=== PATIENT | female | born 1970 | race Caucasian/White ===

== ENCOUNTER → 2018-04-01 09:43 | Outpatient (CLI) | payer OTHER, SELFPAY ==
[2018-04-06 11:03] LABS: HPV Reflexed? NOT INDICATED
== END ==
PROVIDERS: Family Provider Student in an Organized Health Care Education/Training Program; Visit Provider Obstetrics & Gynecology
DX: Z12.4 Encounter for screening for malignant neoplasm of cervix (principal)
CPT/HCPCS: 88175; G0145

== ENCOUNTER → 2018-04-14 14:45 | Outpatient (CLI) | payer OTHER, SELFPAY ==
--- NOTE | 2018-04-14 14:49 | BI_ITS ---
MAMMOGRAPHY - BILATERAL SCREENING REASON FOR EXAM: Female, 48 years old. Routine annual screening examination. PERTINENT HISTORY: Non-contributory. TECHNIQUE: Digital bilateral breast amy (3D mammographic acquisition) in the CC and MLO projections. 2-D mediolateral oblique (MLO) and craniocaudad (CC) views of both breasts were obtained. CAD: Full Field Digital Mammography with Computer Added Detection was performed. COMPARISON: Comparison is made with prior study dated March 27, 2017 and March 14, 2016. FINDINGS: Breast Composition: The breasts are extremely dense, which lowers the sensitivity of mammography. I suspect a 1.8 cm x 2 cm well-defined nodule in the deep retroareolar region of the right breast. Correlation with ultrasound is recommended. Stable scattered bilateral microcalcifications. No focal cluster is seen. No other significant abnormalities are identified. BI/SCREENING MAMM (CAD), BILAT IMPRESSION: Nodular density in the deep retroareolar region of the right breast as described. Correlation with ultrasound is recommended. ASSESSMENT CATEGORY: BIRADS Category 0: Incomplete. Need additional imaging evaluation. A letter regarding these results will be sent to the patient by the facility within 30 days. Approximately 10% of breast cancers are not detected by mammography. A normal mammogram should not delay biopsy of a clinically suspicious abnormality. [id number] Electronically Signed: Vern Schroeder MD at 8:15 EST Tel [phone], Service support ,
== END ==
PROVIDERS: Family Provider Student in an Organized Health Care Education/Training Program; PCP Student in an Organized Health Care Education/Training Program; Referring Provider Obstetrics & Gynecology; Visit Provider Obstetrics & Gynecology
DX: Z12.31 Encounter for screening mammogram for malignant neoplasm of breast (principal)
CPT/HCPCS: 77063; 77067

== ENCOUNTER → 2018-04-21 14:51 | Outpatient (CLI) | payer OTHER, SELFPAY ==
--- NOTE | 2018-04-21 14:54 | US_ITS ---
STUDY: ULTRASOUND BREAST - RIGHT REASON FOR EXAM: Female, 48 years old. Abnormal screening mammogram. TECHNIQUE: Axial and longitudinal images of the RIGHT breast were performed with a high resolution ultrasound transducer. COMPARISON: Comparison is made with prior mammogram dated April 14, 2018 and prior ultrasound of the right breast dated April 02, 2017. FINDINGS: RIGHT Breast: There is dense fibroglandular tissue. No solid or cystic mass lesion is seen. US/Breast Limited Unilateral IMPRESSION: Dense fibroglandular tissue. Routine mammographic follow-up is recommended. ASSESSMENT CATEGORY: BIRADS Category 2: Benign. A letter regarding these results will be sent to the patient by the facility within 30 days. Electronically Signed: Vern Schroeder MD at 8:12 EST Tel [phone], Service support ,
--- OUTSIDE RECORDS SUMMARY | 2018-06-17 00:56 | XMS RPT_ITS ---
:1970 Author Organization OH[facility] Care Team Providers Name Role Phone EARL RAZO (PA) Attending Unavailable POOJA CARLTON (COMMERCIAL ATTACHE) Attending Unavailable Kimberly Lal Attending Unavailable Karan Schneider Primary Care Unavailable Kimberly Lal Attending Unavailable Kimberly Lal Referring Unavailable Karan Schneider Primary Care Unavailable Kimberly Lal Attending Unavailable Karan Schneider Primary Care Unavailable PROBLEMS PROBLEMS No Problem Records FoundPROCEDURES PROCEDURES No Procedure Records FoundRESULTS RESULTS BREAST LIMITED Observed: 04/21/2018 Status: F Source: [place] UNILATERAL 2:54 PM [facility] REPOSITORY [facility] Imaging Services [address] [place] [address] Breast Limited Unilateral MR#: [id number] Acct: [id number] Name: PHILLIP DAWN Rep #: [id number] : 1970 F 48 From: eVrn Schroeder MD PCP: Karan Stephens DO Status: REG CLI Study: Breast Limited Unilateral Date of Exam: 04/21/18 Exam# [id number] Ordering Dr: Kimberly Lal MD STUDY: ULTRASOUND BREAST - RIGHT REASON FOR EXAM: Female, 48 years old. Abnormal screening mammogram. TECHNIQUE: Axial and longitudinal images of the RIGHT breast were performed with a high resolution ultrasound transducer. COMPARISON: Comparison is made with prior mammogram dated April 14, 2018 and prior ultrasound of the right breast dated April 02, 2017. FINDINGS: RIGHT Breast: There is dense fibroglandular tissue. No solid or cystic mass lesion is seen. US/Breast Limited Unilateral IMPRESSION: Dense fibroglandular tissue. Routine mammographic follow- up is recommended. ASSESSMENT CATEGORY: BIRADS Category 2: Benign. A letter regarding these results will be sent to the patient by the facility within 30 days. Electronically Signed: Vern Schroeder MD at 8:12 EST Tel [phone], Service support , CC: Kimberly Lal MD; Karan Stephens DO Stiff Neck Loader: Signed SCREENING MAMM (CAD), Observed: 04/14/2018 Status: F Source: [facility] 2:49 PM [facility] REPOSITORY [facility] Imaging Services [address] [place] [id number] SCREENING MAMM (CAD), BILAT MR#: [id number] Acct: [id number] Name: PHILLIP DAWN Rep #: [id number] : 1970 F 48 From: Vern Schroeder MD PCP: Karan Stephens DO Status: REG CLI Study: SCREENING MAMM (CAD), BILAT Date of Exam: 04/14/18 Exam# [id number] Ordering Dr: Kimberly Lal MD MAMMOGRAPHY - BILATERAL SCREENING REASON FOR EXAM: Female, 48 years old. Routine annual screening examination. PERTINENT HISTORY: Non-contributory. TECHNIQUE: Digital bilateral breast amy (3D mammographic acquisition) in the CC and MLO projections. 2-D mediolateral oblique (MLO) and craniocaudad (CC) views of both breasts were obtained. CAD: Full Field Digital Mammography with Computer Added Detection was performed. COMPARISON: Comparison is made with prior study dated March 27, 2017 and March 14, 2016. FINDINGS: Breast Composition: The breasts are extremely dense, which lowers the sensitivity of mammography. I suspect a 1.8 cm x 2 cm well-defined nodule in the deep retroareolar region of the right breast. Correlation with ultrasound is recommended. Stable scattered bilateral microcalcifications. No focal cluster is seen. No other significant abnormalities are identified. BI/SCREENING MAMM (CAD), BILAT IMPRESSION: Nodular density in the deep retroareolar region of the right breast as described. Correlation with ultrasound is recommended. ASSESSMENT CATEGORY: BIRADS Category 0: Incomplete. Need additional imaging evaluation. A letter regarding these results will be sent to the patient by the facility within 30 days. Approximately 10% of breast cancers are not detected by mammography. A normal mammogram should not delay biopsy of a clinically suspicious abnormality. [id number] Electronically Signed: Vern Schroeder MD at 8:15 EST Tel [phone], Service support , CC: Kimberly Lal MD; Karan Stephens DO Stiff Neck Loader: Signed PAP I-G W/RFX HRHPV Collected: 04/01/2018 Status: F Source: [facility] 9:30 AM [facility] REPOSITORY Order Comment: CYTOLOGY INFORMATION: - CLINICAL INFORMATION: - DATE LMP/MENOPAUSE: MANAGER IMAGING MENOPAUSE - COLLECTION VIAL: Thin Prep Vial - AIRCRAFT LOG CLERK SOURCE: CERVICAL/ENDOCERVICAL - COLLECTION TECHNIQUE: BRUSH/SPATULA Specimen Comment: [id number] Specimen Comment: Source.............Cervix;Endocervix Specimen Comment: Other..............Post Menopausal;MANAGER IMAGING Bleeding Specimen Comment: No. of containers..01 ThinPrep Vial TYPE CODE TESTS RESULT OUT OF RANGE REFERENCE UNITS LAB L7400.0800 . Normal DIAGN Comment Result Comment: NEGATIVE FOR INTRAEPITHELIAL LESION AND MALIGNANCY. THIS SPECIMEN WAS RESCREENED PART OF OUR PLAN CHECKER PROGRAM. LAB L7400.0900 . Normal ADEQ Comment Result Comment: Satisfactory for evaluation. Endocervical and/or squamous metaplastic cells (endocervical component) are present. LAB L7400.1400 . Normal PERFORM Comment Result Comment: Regina Deluca, Engineering Teacher ([facility]) LAB L7400.1500 . Normal QC Comment REV Result Comment: Sherry Johnson, Supervisory Engineering Teacher ([facility]) LAB L7400.2575 . Normal TEST METHOD Comment Result Comment: This liquid based ThinPrep(R) pap test was screened with the use of an image guided system. LAB L7400.2600 . Normal . COMM LAB L7400.2700 . Normal PAPSMR Comment Result Comment: The Pap smear is a screening test designed to aid in the detection of premalignant and malignant conditions of the uterine cervix. It is not a diagnostic procedure and should not be used as the sole means of detecting cervical cancer. Both false-positive and false-negative reports do occur. LAB L7400.2800 . Normal HPV RFLX Comment Result Comment: The HPV DNA reflex criteria were not met with this specimen result therefore, no HPV testing was performed. Performed at: [facility] [id number] [place] Operator: Clare Waller MD, Phone: [phone] Performed By: #### L7400.0350 #### [facility] (refer to report for specific site) refer to report for address and phone number Observed: 12/09/2017 Status: F Source: [facility] THROAT CULT/ROUTINE 11:33 PM [facility] REPOS[facility] Sp. Request/Comment: - Swab Culture Result - No beta hemolytic streptococci isolated. Performed By: #### THRCUL #### [facility] [address] [place], [place] [address] PROGRESS Observed: 12/09/2017 Status: COMPLETED Source: [place] 11:32 AM [facility] REPOSITORY HNO ID: [id number] Author: Pooja Carlton Service: (none) Author Type: Nurse Practitioner Type: Progress Notes Filed: 12/09/2017 11:53 AM Note Text: 12/09/2017 Patient presents with: Sinus Problem: started 3-4 days ago with fluid asnd pain in lft ear then went into sinus, terrible drainage down the thrayt, throat sore worse at night,no fever chills or body aches SUBJECTIVE: This is a 47 year old that is here today for throat pain and left ear pressure. She states that this is day 5 of symptoms and last night was the worst. The throat pain is worse at night, but constant drainage sensation. Left ear feels like pressure and was hard to hear out of it but 2 days ago popped and the right ear hurts a little that day, but is not bothering her anymore. The left ear is starting to feel clogged again. No drainage from it. Cough feels related to the constant tickle in the throat. Denies PACK, body aches, fever, chills, rhinorrhea, nasal congestion, rash, GI upset. She does not have seasonal allergies. She has tried hot tea, chloraseptic spray, sweet oil, OTC decongestant, increased rest and fluids. She is worried that this could be a sinus infection. No one ill around her. PAST MEDICAL HISTORY Diagnosis Date - NEGATIVE MEDICAL HISTORY ALLERGIES Patient has no known allergies. MEDICATIONS Current Outpatient Prescriptions: ketoconazole (NIZORAL) 2 % cream Apply 1 application to affected area twice daily. As needed for skin rash multivitamin tablet Take 1 tablet by mouth once daily. CALCIUM 600 600 MG TAB Take one(1) tablet two(2) times daily. No current facility-administered medications for this visit. Medications and allergies reviewed by this provider. SOCIAL HISTORY Social History Marital status: Spouse name: Years of education: Number of children: Social History Main Topics Smoking status: Never Smoker Smokeless tobacco: Never Used Alcohol use: No Drug use: No Social History Narrative REVIEW OF SYSTEMS GENERAL: No weight loss, malaise or fevers HEENT: Negative for frequent or significant headaches, No changes in hearing or vision, no nose bleeds or other nasal problems, SEE HPI NECK: Negative for lumps, goiter, pain and significant neck swelling RESPIRATORY: Negative for cough, hemoptysis, wheezing, COPD, dyspnea or shortness of breath CARDIOVASCULAR: Negative for chest pain, leg swelling, hypertension, CHF or palpitations GI: No nausea, vomiting, or diarrhea SKIN: Negative for lesions, rash, and itching OBJECTIVE: BP 110/78 (BP Site: Left Arm, BP Position: Sitting, BP Cuff Size: Large Adult) Pulse 60 Temp 36.4 ?C (97.5 ?F) Resp 18 Wt 78.5 kg (173 lb 1.3 oz) BMI 28.80 kg/m? . Vital signs reviewed by this provider. PHYSICAL EXAMINATION: General appearance: Well appearing, alert, in no acute distress, well-hydrated, well nourished. Skin: Skin color, texture, turgor normal, no suspicious rashes or lesions Head: Normocephalic, no masses, lesions, tenderness or abnormalities Eyes: Anicteric sclera. Pupils are equally round and reactive to light. Ears: External ears normal, canals clear, Positive findings: R TM: ashley fluid noted behind TM, erythematous and bulging, L TM: ashley fluid noted behind TM, erythematous and bulging Nose/Sinuses: Nares normal, septum midline, mucosa normal, no drainage or sinus tenderness Oropharynx: Positive findings: mild oropharyngeal erythema, exudates vs stones present- white, multiple spots bilateral tonsils Neck: Supple, no adenopathy Lungs: Lungs clear to auscultation. No wheezing, rhonchi, rales Heart: RRR without murmur, gallop, or rubs. No ectopy Extremities: No deformities, edema, skin discoloration, clubbing or cyanosis. Good capillary refill. , Pulses: 2+ ASSESSMENT/PLAN: 1. Sore throat - ICD9: 462, ICD10: J02.9 (primary diagnosis) - suspect viral - Rapid Strep negative in the office today and Throat culture pending - Discussed supportive care treatment with fluids, rest and analgesia. - The patient may also use warm salt water gargles, throat lozenges and/or OTC throat spray as needed. - The patient should follow up in 3-5 days if symptoms persist or worsen - Call back if drooling, increased temperature, symptoms of dehydration and/or still sick in one week - RAPID STREP TEST B/O - THROAT CULTURE 2. Ear pressure, left - ICD9: 388.8, ICD10: H93.8X2 - start flonase - continue with increased fluids - follow up in 3-5 days of symptoms persist 3. Cough - ICD9: 786.2, ICD10: R05 - lungs clear, likely irritation from throat drainage, start flonase Pooja Carlton APRN.CNP CNOV Observed: 12/09/2017 Status: COMPLETED Source: [place] 11:00 AM [facility] REPOSITORY Office Visit (FAMPWS) PHILLIP DAWN ([id number]) 1970 F Date Time Provider Department 12/09/17 11:00 AM POOJA CARLTON [facility] During your visit today, we recorded the following information about you: Temperature Pulse Respiration Blood pressure 97.5 degrees 60/minute 18/minute 110/78 Weight 78.5 kg Pooja Carlton APRN.CNP 12/09/2017 11:53 AM Signed 12/09/2017 Patient presents with: Sinus Problem: started 3-4 days ago with fluid asnd pain in lft ear then went into sinus, terrible drainage down the thrayt, throat sore worse at night,no fever chills or body aches SUBJECTIVE: This is a 47 year old that is here today for throat pain and left ear pressure. She states that this is day 5 of symptoms and last night was the worst. The throat pain is worse at night, but constant drainage sensation. Left ear feels like pressure and was hard to hear out of it but 2 days ago popped and the right ear hurts a little that day, but is not bothering her anymore. The left ear is starting to feel clogged again. No drainage from it. Cough feels related to the constant tickle in the throat. Denies PACK, body aches, fever, chills, rhinorrhea, nasal congestion, rash, GI upset. She does not have seasonal allergies. She has tried hot tea, chloraseptic spray, sweet oil, OTC decongestant, increased rest and fluids. She is worried that this could be a sinus infection. No one ill around her. PAST MEDICAL HISTORY Diagnosis Date - NEGATIVE MEDICAL HISTORY ALLERGIES Patient has no known allergies. MEDICATIONS Current Outpatient Prescriptions: ketoconazole (NIZORAL) 2 % cream Apply 1 application to affected area twice daily. As needed for skin rash multivitamin tablet Take 1 tablet by mouth once daily. CALCIUM 600 600 MG TAB Take one(1) tablet two(2) times daily. No current facility-administered medications for this visit. Medications and allergies reviewed by this provider. SOCIAL HISTORY Social History Marital status: Spouse name: Years of education: Number of children: Social History Main Topics Smoking status: Never Smoker Smokeless tobacco: Never Used Alcohol use: No Drug use: No Social History Narrative REVIEW OF SYSTEMS GENERAL: No weight loss, malaise or fevers HEENT: Negative for frequent or significant headaches, No changes in hearing or vision, no nose bleeds or other nasal problems, SEE HPI NECK: Negative for lumps, goiter, pain and significant neck swelling RESPIRATORY: Negative for cough, hemoptysis, wheezing, COPD, dyspnea or shortness of breath CARDIOVASCULAR: Negative for chest pain, leg swelling, hypertension, CHF or palpitations GI: No nausea, vomiting, or diarrhea SKIN: Negative for lesions, rash, and itching OBJECTIVE: BP 110/78 (BP Site: Left Arm, BP Position: Sitting, BP Cuff Size: Large Adult) Pulse 60 Temp 36.4 ?C (97.5 ?F) Resp 18 Wt 78.5 kg (173 lb 1.3 oz) BMI 28.80 kg/m? . Vital signs reviewed by this provider. PHYSICAL EXAMINATION: General appearance: Well appearing, alert, in no acute distress, well-hydrated, well nourished. Skin: Skin color, texture, turgor normal, no suspicious rashes or lesions Head: Normocephalic, no masses, lesions, tenderness or abnormalities Eyes: Anicteric sclera. Pupils are equally round and reactive to light. Ears: External ears normal, canals clear, Positive findings: R TM: ashley fluid noted behind TM, erythematous and bulging, L TM: ashley fluid noted behind TM, erythematous and bulging Nose/Sinuses: Nares normal, septum midline, mucosa normal, no drainage or sinus tenderness Oropharynx: Positive findings: mild oropharyngeal erythema, exudates vs stones present- white, multiple spots bilateral tonsils Neck: Supple, no adenopathy Lungs: Lungs clear to auscultation. No wheezing, rhonchi, rales Heart: RRR without murmur, gallop, or rubs. No ectopy Extremities: No deformities, edema, skin discoloration, clubbing or cyanosis. Good capillary refill. , Pulses: 2+ ASSESSMENT/PLAN: 1. Sore throat - ICD9: 462, ICD10: J02.9 (primary diagnosis) - suspect viral - Rapid Strep negative in the office today and Throat culture pending - Discussed supportive care treatment with fluids, rest and analgesia. - The patient may also use warm salt water gargles, throat lozenges and/or OTC throat spray as needed. - The patient should follow up in 3-5 days if symptoms persist or worsen - Call back if drooling, increased temperature, symptoms of dehydration and/or still sick in one week - RAPID STREP TEST B/O - THROAT CULTURE 2. Ear pressure, left - ICD9: 388.8, ICD10: H93.8X2 - start flonase - continue with increased fluids - follow up in 3-5 days of symptoms persist 3. Cough - ICD9: 786.2, ICD10: R05 - lungs clear, likely irritation from throat drainage, start flonase Pooja Carlton APRN.COMMERCIAL ATTACHE Referring Provider: SELF [200] Allergies As of Date: 12/09/2017 (No Known Allergies) Date Reviewed: 12/09/2017 Reviewed by: Nida Henao LPN - Fully Assessed Reason for Visit: Sinus Problem [99] Cmt: started 3-4 days ago with fluid asnd pain in lft ear then went into sinus, terrible drainage down the thrayt, throat sore worse at night,no fever chills or body aches Primary Visit Diagnosis:Sore throat [J02.9] Other Visit Diagnoses:Ear pressure, left [H93.8X2] Cough [R05] Order(s):RAPID STREP TEST B/O [[id number]] Order #: [id number] fluticasone (FLONASE) 50 mcg/actuation nasal sprayUse 2 Sprays in each nostril once daily. Rinse mouth after use.Disp: 1 BottleRfl: 2 THROAT CULTURE [SQTHRCUL] Order #: [id number] Prescriptions as of 12/09/2017 Sig: KETOCONAZOLE 2 % TOPICAL CREAM Apply 1 application to affect* MULTIVITAMIN TABLET Take 1 tablet by mouth once d* CALCIUM 600 600 MG TABLET Take one(1) tablet two(2) derick* FLUTICASONE 50 MCG/ACTUATION * Use 2 Sprays in each nostril * Problem List As Of Date: 12/09/2017 (None) Prescriptions ordered this encounter Disp Refills Start End FLUTICASONE 50 MCG/ACTUATION NASAL S* 1 Vasquez* 2 12/09/2017 Route: EACH NOSTRIL Sig: Use 2 Sprays in each nostril once daily. Rinse mouth after use. Disposition: Return if symptoms worsen or fail to improve. Follow-up and Disposition History Recorded Encounter Status:Closed by POOJA CARLTON on 12/09/17 PROGRESS Observed: 05/15/2017 Status: COMPLETED Source: [place] 11:13 AM [facility] [place] REPOSITORY O ID: [id number] Author: Earl Razo ([place]) Service: (none) Author Type: Physician Shop Tailor Apprentice Type: Progress Notes Filed: 05/15/2017 11:37 AM Note Text: Patient presents with: Cough Sinus Problem 47 year old female with c/o URI sx over the last 5 days with Sore throat: No. Nasal congestion: Yes. Nasal drip: Yes. Sinus pain/ pressure: Yes. Headache Yes. Body aches No. Ear pain: Yes. More pressure Cough: Yes. Production: No. Shortness of Breath: No. Fever: Low grade. Tmax 99.9. Hx asthma No. Hx pneumonia No. Smoker: No. OTC meds tried: decongestant. Fluids Has hx of these symptoms around this time. Started in the sinuses and worsening. There is no problem list on file for this patient. Current Outpatient Prescriptions: multivitamin tablet Take 1 tablet by mouth once daily. Disp: Rfl: CALCIUM 600 600 MG TAB Take one(1) tablet two(2) times daily. Disp: Rfl: 0 ketoconazole (NIZORAL) 2 % cream Apply 1 application to affected area twice daily. As needed for skin rash Disp: 60 g Rfl: 3 No current facility-administered medications for this visit. ROS: SEE HPI OBJECTIVE: BP 124/84 Pulse 60 Temp 37.7 ?C (99.8 ?F) (Tympanic) Resp 14 Wt 78.5 kg (173 lb) BMI 28.79 kg/m2 General appearance: Well appearing, alert, in no acute distress, well-hydrated, well nourished., Head: Normocephalic, no masses, lesions, tenderness or abnormalities; Ears: External ears normal, canals clear, TM's normal Nose/Sinuses: Positive findings: mucosa erythematous and swollen, purulent rhinorrhea, sinus pressure to palp, Oropharynx: Positive findings: mild oropharyngeal erythema Neck: Supple, no adenopathy; Lungs: Lungs clear to auscultation. No wheezing, rhonchi, rales Heart: RRR without murmur, gallop, or rubs. No ectopy ASSESSMENT/PLAN: 1. URI, acute - ICD9: 465.9, ICD10: J06.9 - Discussed viral etiology and rationale for treatment. - Symptomatic treatment with prn analgesia - Supportive care with fluids and rest - With long Holiday weekend, Rx for atb given to start if symptoms don't improve - AMOXICILLIN 500 MG TABLET MARA TOMLIN CNOV Observed: 05/15/2017 Status: COMPLETED Source: [place] 11:00 AM [facility] REPOSITORY Office Visit (FAMPWS) PHILLIP DAWN ([id number]) 1970 F Date Time Provider Department 05/15/17 11:00 AM EARL RAZO) FAMPWS During your visit today, we recorded the following information about you: Temperature Pulse Respiration Blood pressure 99.8 degrees 60/minute 14/minute 124/84 Weight 78.5 kg MARA TOMLIN 05/15/2017 11:37 AM Signed Patient presents with: Cough Sinus Problem 47 year old female with c/o URI sx over the last 5 days with Sore throat: No. Nasal congestion: Yes. Nasal drip: Yes. Sinus pain/ pressure: Yes. Headache Yes. Body aches No. Ear pain: Yes. More pressure Cough: Yes. Production: No. Shortness of Breath: No. Fever: Low grade. Tmax 99.9. Hx asthma No. Hx pneumonia No. Smoker: No. OTC meds tried: decongestant. Fluids Has hx of these symptoms around this time. Started in the sinuses and worsening. There is no problem list on file for this patient. Current Outpatient Prescriptions: multivitamin tablet Take 1 tablet by mouth once daily. Disp: Rfl: CALCIUM 600 600 MG TAB Take one(1) tablet two(2) times daily. Disp: Rfl: 0 ketoconazole (NIZORAL) 2 % cream Apply 1 application to affected area twice daily. As needed for skin rash Disp: 60 g Rfl: 3 No current facility-administered medications for this visit. ROS: SEE HPI OBJECTIVE: BP 124/84 Pulse 60 Temp 37.7 ?C (99.8 ?F) (Tympanic) Resp 14 Wt 78.5 kg (173 lb) BMI 28.79 kg/m2 General appearance: Well appearing, alert, in no acute distress, well-hydrated, well nourished., Head: Normocephalic, no masses, lesions, tenderness or abnormalities; Ears: External ears normal, canals clear, TM's normal Nose/Sinuses: Positive findings: mucosa erythematous and swollen, purulent rhinorrhea, sinus pressure to palp, Oropharynx: Positive findings: mild oropharyngeal erythema Neck: Supple, no adenopathy; Lungs: Lungs clear to auscultation. No wheezing, rhonchi, rales Heart: RRR without murmur, gallop, or rubs. No ectopy ASSESSMENT/PLAN: 1. URI, acute - ICD9: 465.9, ICD10: J06.9 - Discussed viral etiology and rationale for treatment. - Symptomatic treatment with prn analgesia - Supportive care with fluids and rest - With long Holiday weekend, Rx for atb given to start if symptoms don't improve - AMOXICILLIN 500 MG TABLET MARA TOMLIN PA 05/15/2017 11:27 AM Signed Follow up in 7-10 days if no improvement. Take all of the antibiotic as directed per prescription. If you should breakout in a rash, stop the medicine and call the office. Any antibiotic has the potential to cause diarrhea due to alteration in the normal bacterial katarina of the gut. This can be reduced by eating yogurt with active cultures daily while on the medication. If diarrhea becomes severe (watery, large volumes or more than 3-4/day) call the office. Women may experience yeast vaginitis due to alteration in the vaginal katarina. Symptoms include vaginal itching, irritation, and often a clumpy white discharge. If this occurs, there are several effective over the counter remedies available, including one-dose treatments. If these are unsuccessful, call the office. Antibiotics may interfer with control. If you are on oral contraceptives, use another form of protection (condoms, foams, jellies, diaphragm) for the next 1 month. MARA TOMLIN Referring Provider: SELF [200] Allergies As of Date: 05/15/2017 (No Known Allergies) Date Reviewed: 05/15/2017 Reviewed by: Earl Back) Dung - Fully Assessed Reason for Visit: Cough [28] Sinus Problem [99] Primary Visit Diagnosis:URI, acute [J06.9] Order(s):Amoxicillin 500 mg tabletTake 1 tablet by mouth three times daily for 10 days.Disp: 30 tabletRfl: 0 Prescriptions as of 05/15/2017 Sig: MULTIVITAMIN TABLET Take 1 tablet by mouth once d* CALCIUM 600 600 MG TABLET Take one(1) tablet two(2) derick* AMOXICILLIN 500 MG TABLET Take 1 tablet by mouth three * KETOCONAZOLE 2 % TOPICAL CREAM Apply 1 application to affect* Problem List As Of Date: 05/15/2017 (None) Other instructions from your clinician: Follow up in 7-10 days if no improvement. Take all of the antibiotic as directed per prescription. If you should breakout in a rash, stop the medicine and call the office. Any antibiotic has the potential to cause diarrhea due to alteration in the normal bacterial katarina of the gut. This can be reduced by eating yogurt with active cultures daily while on the medication. If diarrhea becomes severe (watery, large volumes or more than 3-4/day) call the office. Women may experience yeast vaginitis due to alteration in the vaginal katarina. Symptoms include vaginal itching, irritation, and often a clumpy white discharge. If this occurs, there are several effective over the counter remedies available, including one-dose treatments. If these are unsuccessful, call the office. Antibiotics may interfer with control. If you are on oral contraceptives, use another form of protection (condoms, foams, jellies, diaphragm) for the next 1 month. MARA TOMLIN Prescriptions ordered this encounter Disp Refills Start End AMOXICILLIN 500 MG TABLET 30 t* 0 05/15/2017 05/25/2017 Route: ORAL Sig: Take 1 tablet by mouth three times daily for 10 days. Encounter Status:Closed by EARL RAZO on 05/15/17 ALLERGIES ALLERGIES DATE TYPE / CODE NAME / CODE REACTION SEVERITY SOURCE Drug NO KNOWN [facility] Class/77874 ALLERGIES [address] [place] 1003(SNOMED Repository CT) ENCOUNTERS ENCOUNTERS ADMIT/DISCHARGE ACCOUNT ADMITTING ENCOUNTER LOCATION SOURCE NUMBER CLASS 04/21/2018 [id number] [facility] ing:OPUS Repository 04/14/2018 [id number] [facility] ing:OPBI Repository 04/01/2018 [id number] [facility] ing:LABSPEC Repository 12/09/2017/12/12/19 [id number] Ambulatory [address] Repository 05/15/2017/05/15/[id number] Repository PAYERS PAYERS ENCOUNTER GUARANTOR PAYER SUBSCRIBER SOURCE 04/21/2018 PH[facility]IP [facility] Bid[place]DOB: Kayli [id number] Insurance:MED[id number] [address]Cqp: Number: Repository [id number] (HP) Date:[id number] [address] [address]TN: 04/21/2018 Secondary NOT GIVENUNK [place] Insurance:SELF PAY [facility] Number: Effective Repository Date:2018-04-19 04/14/2018 PHILLIP Ahmadi Julian [place]id[place]ackDOB: [place] [id number] Insurance:MEDICAL [id number] [facility] [address]Xzz: Number: Repository [id number] (HP) Date:[id number] [address] [address]TA: 04/14/2018 Secondary NOT GIVENUNK [place] Insurance:SELF PAY [facility] Number: Effective Repository Date:2018-04-02 04/01/2018 PHILLIP [facility] BidlackDOB: [place] [id number] Insurance:MEDICAL [id number] [facility]als [facility] [address]Qip: Number: Repository [id number] (HP) Date:1050-22-11SU [address] [address]NM: 04/01/2018 Secondary NOT GIVENUNK [place] Insurance:SELF PAY [facility] Number: Effective Repository Date:2018-04-01
== END ==
PROVIDERS: Family Provider Student in an Organized Health Care Education/Training Program; PCP Student in an Organized Health Care Education/Training Program; Visit Provider Obstetrics & Gynecology
DX: R92.8 Other abnormal and inconclusive findings on diagnostic imaging of breast (principal)
CPT/HCPCS: 76642

== ENCOUNTER → 2019-02-24 17:05 | Outpatient (CLI) | payer OTHER, SELFPAY ==
--- NOTE | 2019-02-24 17:06 | US_ITS ---
STUDY: SUPERFICIAL ULTRASOUND - LEFT FOREARM REASON FOR EXAM: Female, 49 years old. Fall. Lump. TECHNIQUE: A superficial ultrasound was performed with real-time and static baker-scale imaging. COMPARISON: None. FINDINGS: Ultrasound limited to the area of clinical concern shows a 3.0 x 2.5 x 0.6 cm hypoechoic area which could represent a seroma/resolving hematoma, given the history. Electronically Signed: Jason Granado MD at 19:42 EDT , Service support , US/Ext Non Vasc Limited/Soft Tiss
== END ==
PROVIDERS: Family Provider Student in an Organized Health Care Education/Training Program; PCP Student in an Organized Health Care Education/Training Program; Referring Provider Nurse Practitioner Primary Care; Visit Provider Nurse Practitioner Primary Care
DX: R22.32 Localized swelling, mass and lump, left upper limb (principal)
CPT/HCPCS: 76882

== ENCOUNTER → 2019-06-24 08:07 | Outpatient (CLI) | payer OTHER, SELFPAY ==
--- NOTE | 2019-06-24 08:40 | BI_ITS ---
MAMMOGRAPHY - BILATERAL SCREENING REASON FOR EXAM: Female, 49 years old. Routine annual screening examination. PERTINENT HISTORY: Non-contributory. TECHNIQUE: Digital bilateral breast elijah (3D mammographic acquisition) in the CC and MLO projections. 2-D mediolateral oblique (MLO) and craniocaudad (CC) views of both breasts were obtained. CAD: Full Field Digital Mammography with Computer Added Detection was performed. COMPARISON: Comparison is made with prior study dated April 14, 2018 and March 27, 2017. FINDINGS: Breast Composition: The breasts are extremely dense, which lowers the sensitivity of mammography. There are no dominant masses or suspicious calcifications. No other significant abnormalities are identified. There has been no significant change since the prior study. BI/SCREEN MAMM (CAD) W/ELIJAH BILAT IMPRESSION: Stable bilateral screening mammogram. Yearly follow-up mammogram recommended. (A) ASSESSMENT CATEGORY: BIRADS Category 1: Negative. A letter regarding these results will be sent to the patient by the facility within 30 days. Approximately 10% of breast cancers are not detected by mammography. A normal mammogram should not delay biopsy of a clinically suspicious abnormality. [id number] Electronically Signed: Vern Schroeder, at 10:01 EST , Service support ,
== END ==
LOC: OPBI 08:09
PROVIDERS: PCP Student in an Organized Health Care Education/Training Program; Referring Provider Obstetrics & Gynecology; Visit Provider Obstetrics & Gynecology
DX: Z12.31 Encounter for screening mammogram for malignant neoplasm of breast (principal)
CPT/HCPCS: 77063; 77067

== ENCOUNTER → 2019-07-13 | Outpatient (CLI) | payer OTHER, SELFPAY ==
[2019-07-17 16:20] LABS: HPV APTIMA, High Risk Negative (Negative)
== END | disposition home or self-care (01) ==
LOC: LABSPEC 15:31
PROVIDERS: PCP Student in an Organized Health Care Education/Training Program; Visit Provider Obstetrics & Gynecology
DX: Z12.4 Encounter for screening for malignant neoplasm of cervix (principal)
CPT/HCPCS: 87624; 88175; G0145

== ENCOUNTER → 2020-09-03 08:02 | Outpatient (CLI) | payer OTHER, SELFPAY ==
--- NOTE | 2020-09-03 08:06 | BI_ITS ---
MAMMOGRAPHY - BILATERAL SCREENING REASON FOR EXAM: Female, 50 years old. Routine annual screening examination. PERTINENT HISTORY: Non-contributory. TECHNIQUE: Digital bilateral breast elijah (3D mammographic acquisition) in the CC and MLO projections. 2-D mediolateral oblique (MLO) and craniocaudad (CC) views of both breasts were obtained. CAD: Full Field Digital Mammography with Computer Added Detection was performed. COMPARISON: Comparison is made with prior study dated 06/24/2019 and 04/14/2018. FINDINGS: Breast Composition: The breasts are extremely dense, which lowers the sensitivity of mammography. There are no dominant masses or suspicious calcifications. No other significant abnormalities are identified. There has been no significant change since the prior study. BI/SCRN MAMM (CAD)W/ELIJAH BILAT IMPRESSION: Stable bilateral screening mammogram. Yearly follow-up mammogram recommended. (A) ASSESSMENT CATEGORY: BIRADS Category 1: Negative. A letter regarding these results will be sent to the patient by the facility within 30 days. Approximately 10% of breast cancers are not detected by mammography. A normal mammogram should not delay biopsy of a clinically suspicious abnormality. [id number] Electronically Signed: Vern Schroeder MD at 12:49 EDT , Service support ,
== END ==
PROVIDERS: PCP Student in an Organized Health Care Education/Training Program; Referring Provider Obstetrics & Gynecology; Visit Provider Obstetrics & Gynecology
DX: Z12.31 Encounter for screening mammogram for malignant neoplasm of breast (principal)
CPT/HCPCS: 77063; 77067

== ENCOUNTER 2020-12-30 12:49 | Emergency (ER) | payer OTHER, SELFPAY ==
[2020-12-30 12:50] VITALS: BP 174/108; PULSE 63; RESP 16; TEMP 36.5; O2SAT 100; BMI 30.9
--- NOTE | 2020-12-30 13:02 | EX.ED.GENINJ ---
HPI History of Present Illness Chief Complaint: Other, Pain/Inj Narrative Narrative: Patient presenting with left rib pain. She states she has had this progressively for a couple of weeks. Patient states she had a cold starting 2 weeks ago with a cough, rhinorrhea. She denies change in taste or smell. She has had a COVID-19 vaccination. Patient stated occurred after vacation. Patient has not had a fever. Her coughing has improved however now she has the left rib pain. She has no DVT/PE risk factors except for recent travel. Patient has no leg swelling. She is not on exogenous hormones. She has not been bedridden or immobilized. No history of cancer. PFSH PFSH Home Medications lidocaine [Lidoderm] 1 patch TOPICAL DAILY 6 Days #1 ea 12/30/20 [Rx Last Taken Unknown] naproxen 500 mg PO BID #20 tab 12/30/20 [Rx Last Taken Unknown] Allergy/AdvReac Type Severity Reaction Status Date / Time No Known Allergies Allergy Verified 12/30/20 12:53 Surgical History History of appendectomy History of D&C Social History Smoking Status: Never smoker ROS ROS ED Constitutional Constitutional ED: Reports chills; Denies fever(s) or weight loss Eyes Eyes: Denies blurry vision or change in vision ENT ENT ED: Denies rhinorrhea or sore throat Cardiovascular Cardiovascular: Reports other Details: Left posterior and midaxillary rib pain Respiratory/Chest Respiratory/Chest: Reports cough; Denies sputum Gastrointestinal Gastrointestinal: Denies abdominal pain, nausea or vomiting Genitourinary Genitourinary ED: Denies dysuria or hematuria Musculoskeletal Musculoskeletal: Denies arthralgias or myalgias Integumentary Denies abscess or rash Neurologic Neurologic: Denies headache(s) or paresthesias Psychiatric Psychiatric: Denies anxiety or depression EXAM Physical Exam Const Vital Signs: 12/30/20 12:50 12/30/20 13:54 12/30/20 14:15 Temperature 97.7 F L Temperature Source Temporal Pulse Rate 63 Respiratory Rate 16 17 Respiratory Effort Normal Respiratory Pattern Normal Blood Pressure 174/108 H Blood Pressure Mean 130 Pulse Ox 100 Oxygen Delivery Method Room Air Positive well nourished General Appearance ED: NAD HEENT Reports normocephalic and head/scalp atraumatic atraumatic Neck full ROM Chest Wall inspection of chest normal and palpation of chest normal Resp normal respiratory effort Resp Narrative: Diminished breath sounds left lung base. No wheezing. Cardio regular rhythm Rate: regular rate Extremity normal to inspection and full ROM General Extremety ED: Negative for deformity, edema or tenderness General Extremity: Negative for deformity or edema Neuro oriented x3, CN's II-XII intact bilaterally, moves all extremities, no focal motor deficits and no sensory deficits noted Sensorium / Orientation: alert Psych mental status grossly normal and thought process normal Skin no rashes or lesions noted and no wounds MDM MDM MDM Narrative Medical decision making narrative: Patient was given Naprosyn and lidocaine patch. Patient had good anesthesia achieved. X-ray of the left ribs on my interpretation shows no acute fracture and no acute cardiopulmonary process on my interpretation and the radiologist does agree. Patient discharged with Naprosyn and incentive spirometer. Patient given return precautions. Impression: 1. Left rib pain Radiography Diagnostic Testing: Radiology Impression Ribs w/Chest X-Ray 12/30/20 13:11 IMPRESSION: RIBS: Normal x-ray examination of the ribs. CHEST: Normal x-ray examination of the chest. Electronically Signed: Marquez Bae MD at 13:40 EDT Tel , Service support , Discharge Plan Triage Chief Complaint: Other, Pain/Inj ED Provider: Michael Malagon Dx/Rx/DC Orders Instructions: ED Chest Pain, Uncertain Cause Prescriptions: New lidocaine [Lidoderm] 5 % adhesive patch,medicated 1 patch topical DAILY 6 Days Qty: 1 RF: 0 naproxen 500 mg tablet 500 mg PO BID Qty: 20 RF: 0 Primary Care Provider: Karan Schneider Referrals: Karan Schneider DO [Primary Care Provider] - Disposition Disposition: Home, Self Care Discharge Date/Time: 12/30/20 14:16
--- NOTE | 2020-12-30 13:11 | RAD_ITS ---
STUDY: X-RAY - UNILATERAL RIBS ( LEFT ) WITH CHEST REASON FOR EXAM: Female, 50 years old. rib pain TECHNIQUE - RIBS: 4 view(s) of the ribs. TECHNIQUE - CHEST: PA view COMPARISON: None. FINDINGS - RIBS: Normal visualized ribs without a demonstrated fracture. FINDINGS - CHEST: The lungs are clear and expanded. There is no demonstrated pleural abnormality. Normal size heart. Normal mediastinum and amado. Normal visualized pulmonary arteries. Normal visualized aortic arch and descending thoracic aorta. Normal visualized thoracic spine. Normal visualized ribs, clavicles, and shoulders. There is no demonstrated abnormality of the visualized soft tissue structures of the upper abdomen. RAD/Ribs Uni Min 3V w/PA Chest IMPRESSION: RIBS: Normal x-ray examination of the ribs. CHEST: Normal x-ray examination of the chest. Electronically Signed: Marquez Bae MD at 13:40 EDT Tel , Service support ,
[2020-12-30] MEDS: Lidocaine 5% Patch 1 PATCH TOPICAL (13:26)
[2020-12-30] MEDS: Naproxen 500 MG Tablet PO (14:06)
[2020-12-30 14:15] VITALS: RESP 17
== END 2020-12-30 14:16 | disposition home or self-care (01) ==
PROVIDERS: Emergency Provider Student in an Organized Health Care Education/Training Program; PCP Student in an Organized Health Care Education/Training Program
DX: R07.81 Pleurodynia (principal); R05 Cough; Z79.1 Long term (current) use of non-steroidal anti-inflammatories (NSAID)
CPT/HCPCS: 71101; 99283

== ENCOUNTER → 2021-11-22 | Outpatient (CLI) | payer OTHER, SELFPAY ==
--- NOTE | 2021-11-22 08:21 | BI_ITS ---
MAMMOGRAPHY - BILATERAL SCREENING REASON FOR EXAM: Female, 51 years old. Routine annual screening examination. PERTINENT HISTORY: Non-contributory. TECHNIQUE: Digital bilateral breast elijah (3D mammographic acquisition) in the CC and MLO projections. 2-D mediolateral oblique (MLO) and craniocaudad (CC) views of both breasts were obtained. CAD: Full Field Digital Mammography with Computer Added Detection was performed. COMPARISON: Comparison is made with prior study dated 09/03/2020 and 06/24/2019. FINDINGS: Breast Composition: The breasts are extremely dense, which lowers the sensitivity of mammography. There are no dominant masses or suspicious calcifications. No other significant abnormalities are identified. There has been no significant change since the prior study. BI/SCRN MAMM (CAD)W/ELIJAH BILAT IMPRESSION: Stable bilateral screening mammogram. Yearly follow-up mammogram recommended. (A) ASSESSMENT CATEGORY: BIRADS Category 1: Negative. A letter regarding these results will be sent to the patient by the facility within 30 days. Approximately 10% of breast cancers are not detected by mammography. A normal mammogram should not delay biopsy of a clinically suspicious abnormality. [id number] Electronically Signed: Vern Schroeder MD at 10:58 EDT ,
== END | disposition home or self-care (01) ==
LOC: OPBI 08:20
PROVIDERS: PCP Student in an Organized Health Care Education/Training Program; Referring Provider Obstetrics & Gynecology; Visit Provider Obstetrics & Gynecology
DX: Z12.31 Encounter for screening mammogram for malignant neoplasm of breast (principal)
CPT/HCPCS: 77063; 77067

== ENCOUNTER → 2022-12-19 | Outpatient (CLI) | payer OTHER, SELFPAY ==
--- NOTE | 2022-12-19 08:07 | BI_ITS ---
MAMMOGRAPHY - BILATERAL SCREENING REASON FOR EXAM: Female, 52 years old. Routine annual screening examination. PERTINENT HISTORY: Non-contributory. TECHNIQUE: Digital bilateral breast elijah (3D mammographic acquisition) in the CC and MLO projections. 2-D mediolateral oblique (MLO) and craniocaudad (CC) views of both breasts were obtained. CAD: Full Field Digital Mammography with Computer Added Detection was performed. COMPARISON: Prior study is made with prior study dated November 22, 2021 and September 03, 2020. FINDINGS: Breast Composition: The breasts are extremely dense, which lowers the sensitivity of mammography. There is a 2.1 cm x 1.6 cm well-defined nodule in the upper central region of the right breast. Correlation with ultrasound is recommended. There are no dominant masses or suspicious calcifications. No other significant abnormalities are identified. There has been no significant change since the prior study. BI/SCRN MAMM (CAD)W/ELIJAH BILAT IMPRESSION: Stable bilateral screening mammogram. Yearly follow-up mammogram recommended. (A) ASSESSMENT CATEGORY: BIRADS Category 0: Incomplete. Need additional imaging evaluation. A letter regarding these results will be sent to the patient by the facility within 30 days. Approximately 10% of breast cancers are not detected by mammography. A normal mammogram should not delay biopsy of a clinically suspicious abnormality. [id number] Electronically Signed: Vern Schroeder MD at 9:32 EDT ,
== END | disposition home or self-care (01) ==
LOC: OPBI 08:04
PROVIDERS: PCP Student in an Organized Health Care Education/Training Program; Referring Provider Student in an Organized Health Care Education/Training Program; Visit Provider Student in an Organized Health Care Education/Training Program
DX: Z12.31 Encounter for screening mammogram for malignant neoplasm of breast (principal)
CPT/HCPCS: 77063; 77067

== ENCOUNTER → 2022-12-23 | Outpatient (CLI) | payer OTHER, SELFPAY ==
--- NOTE | 2022-12-23 08:11 | US_ITS ---
STUDY: ULTRASOUND BREAST - RIGHT REASON FOR EXAM: Female, 52 years old. Abnormal screening mammogram. TECHNIQUE: Axial and longitudinal images of the RIGHT breast were performed with a high resolution ultrasound transducer. # OF IMAGES: 37 COMPARISON: Comparison is made with prior mammogram dated December 19, 2022. Comparison is also made with prior sonogram of the right breast dated April 21, 2018. FINDINGS: RIGHT Breast: The upper half of the right breast was examined with ultrasound. There is dense fibroglandular tissue. Additional mammographic views will be obtained for further evaluation. US/Breast Limited Unilateral IMPRESSION: Dense fibroglandular tissue. No sonographic abnormality is seen. Additional mammographic views will be obtained. ASSESSMENT CATEGORY: BIRADS Category 0: Incomplete. Need additional imaging evaluation. A letter regarding these results will be sent to the patient by the facility within 30 days. Electronically Signed: Vern Schroeder MD at 9:56 EDT ,
--- NOTE | 2022-12-23 08:38 | BI_ITS ---
MAMMOGRAPHY - UNILATERAL DIAGNOSTIC: RIGHT BREAST REASON FOR EXAM: Female, 52 years old. Abnormal screening mammogram. PERTINENT HISTORY: Non-contributory. TECHNIQUE: Compression tomographic views of the right breast were obtained. CAD: Full Field Digital Mammography with Computer Added Detection was performed. COMPARISON: Comparison is made with prior mammogram dated December 19, 2022. FINDINGS: Breast Composition: The breasts are extremely dense, which lowers the sensitivity of mammography. With the compression views, there is a persistent 2 cm x 1.6 cm nodular density in the upper central region of the right breast. The ultrasound did not demonstrate any nodular density. Correlation with MRI is recommended. No other significant abnormalities are identified. BI/DIAG MAMM W/CAD, UNILAT IMPRESSION: With a negative sonogram and a persistent nodular density in the upper central region of the right breast, correlation with MRI is recommended. ASSESSMENT CATEGORY: BIRADS Category 0: Incomplete. Need additional imaging evaluation. A letter regarding these results will be sent to the patient by the facility within 30 days. Approximately 10% of breast cancers are not detected by mammography. A normal mammogram should not delay biopsy of a clinically suspicious abnormality. Electronically Signed: Vern Schroeder MD at 9:13 EDT ,
== END | disposition home or self-care (01) ==
PROVIDERS: PCP Student in an Organized Health Care Education/Training Program; Referring Provider Student in an Organized Health Care Education/Training Program; Visit Provider Student in an Organized Health Care Education/Training Program
DX: N63.12 Unspecified lump in the right breast, upper inner quadrant (principal)
CPT/HCPCS: 76642; 77061; 77065; G0279

== ENCOUNTER → 2023-01-08 | Outpatient (CLI) | payer OTHER, SELFPAY ==
--- NOTE | 2023-01-08 12:41 | MRI_ITS ---
STUDY: BILATERAL BREAST MR WITHOUT AND WITH CONTRAST REASON FOR EXAM: Female, 52 years old. Skin thickening in right breast. Inconclusive mammogram and right breast ultrasound. TECHNIQUE: Multi-sequence multi-echo imaging of both breasts was performed with a dedicated breast coil. T1-weighted and T2-weighted images were performed before the administration of contrast. T1-weighted images were also performed after the intravenous administration of 15 mL of Clariscan contrast. COMPARISON: Bilateral mammogram dated December 23, 2022 and mammograms dated December 19, 2022. FINDINGS: RIGHT BREAST: Heterogeneously dense fibroglandular tissue with mild background enhancement. No abnormal enhancing masses or areas of non-mass enhancement in the right breast. LEFT BREAST: Heterogeneously dense fibroglandular tissue with mild background enhancement. No abnormal enhancing masses or areas of non-mass enhancement in the right breast. No enlarged or abnormal lymph nodes. No abnormality in the visualized regions of the chest or liver. MRI/Breast Bilateral W/O and W IMPRESSION: No abnormality on the breast MRI with contrast. Yearly follow-up screening mammogram recommended. CATEGORY: BIRADS Category 2: Benign. A letter regarding these results will be sent to the patient by the facility within 30 days. Electronically Signed: Aldo Pickering MD at 16:41 EDT ,
== END | disposition home or self-care (01) ==
PROVIDERS: PCP Student in an Organized Health Care Education/Training Program; Referring Provider Student in an Organized Health Care Education/Training Program; Visit Provider Student in an Organized Health Care Education/Training Program
DX: N63.10 Unspecified lump in the right breast, unspecified quadrant (principal); R92.2 Inconclusive mammogram
CPT/HCPCS: 77049; A9575; A4216; C8908